=== PATIENT | female | born 1980 | race Asian ===

== ENCOUNTER 2016-09-29 00:40 | Inpatient (IN) | payer SELFPAY ==
[~2016-09-29] VITALS: Ht 160 cm; Wt 77.1 kg
[2016-09-29 01:30] VITALS: BP 120/59
[2016-09-29] MEDS ORDERED: LACTATED RINGERS 1,000 ML IV SCH (01:48)
[2016-09-29 02:26] LABS: BASOPHILS # (AUTO) 0.1 K/uL (0.00-0.22); EOSINOPHILS # (AUTO) 0.1 K/uL (0-0.4); EOSINOPHILS % (AUTO) 1.3 % (0.0-4.0); HEMOGLOBIN 13.1 g/dL (12.0-16.0); LYMPHOCYTES # (AUTO) 1.7 K/uL (2.5-16.5); LYMPHOCYTES % (AUTO) 18.2 % (20.5-51.1); MEAN CORPUSCULAR HEMOGLOBIN 31 pg (27-31); MEAN CORPUSCULAR HGB CONC 34 g/dL (33-37); MEAN CORPUSCULAR VOLUME 91 fL (80-94); MONOCYTES # (AUTO) 0.6 K/uL (0.8-1.0); MONOCYTES % (AUTO) 6.4 % (1.7-9.3); NEUTROPHILS # (AUTO) 6.9 K/uL (1.8-7.7); NEUTROPHILS % (AUTO) 73.1 % (42.2-75.2); PLATELET COUNT (AUTO) 135 K/uL (140-450); RED BLOOD CELL COUNT(AUTO) 4.29 MIL/uL (4.20-5.40); RED CELL DISTRIBUTION WIDTH 12.9 % (11.6-13.7); WHITE BLOOD COUNT (AUTO) 9.4 K/uL (4.8-10.8)
[2016-09-29] MEDS ORDERED: PREN-380 PO (02:44)
[2016-09-29 03:11] LABS: CALCIUM 8.8 mg/dL (8.5-10.1); CARBON DIOXIDE 22.8 mmol/L (21-32); CREATININE 0.6 mg/dL (0.6-1.3); POTASSIUM 3.8 mmol/L (3.5-5.1); TOTAL BILIRUBIN 0.4 mg/dL (0.0-1.0); TOTAL PROTEIN, SERUM 6.4 g/dL (6.4-8.2)
[2016-09-29 03:12] LABS: ALBUMIN 2.8 g/dL (3.4-5.0)
[2016-09-29 03:35] LABS: HIV RAPID SCREEN NON-REACTIVE (NON REACTIV)
[2016-09-29 04:22] LABS: APPEARANCE,URINE CLEAR (CLEAR); BILIRUBIN,URINE NEGATIVE (NEGATIVE); BLOOD, URINE NEGATIVE (NEGATIVE); COLOR,URINE YELLOW (YELLOW); LEUKOCYTE ESTERASE ,URINE 1+ (NEGATIVE); NITRITE, URINE NEGATIVE (NEGATIVE); PH,URINE 6.5 (5.0-9.0); PROTEIN,URINE NEGATIVE (NEGATIVE); UGLUCOSE NEGATIVE (NEGATIVE); UROBILINOGEN,URINE 0.2 EU/dL (0.2 - 1)
[2016-09-29 05:06] LABS: BACTERIA,URINE 3+ /HPF (None Seen); RBC,URINE 0-5 (RARE) /HPF (0-5); WBC,URINE 0-5 (RARE) /HPF (0-5)
[2016-09-29 05:07] LABS: TRICHOMONAS,URINE Few /HPF (None Seen)
[2016-09-29] MEDS ORDERED: ceFAZolin 1,000 MG VIAL ONE (05:40)
[2016-09-29] MEDS ORDERED: BETAMETH ACET/BETAMETH NA PH 30 MG/5 ML VIAL IM ONE ×2 (05:40→05:49)
[2016-09-29] MEDS ORDERED: ONDANSETRON 4 MG/2 ML VIAL ONE (05:50)
[2016-09-29] MEDS ORDERED: OXYTOCIN 10 UNITS/ML VIAL ONE ×2 (05:50→05:54)
[2016-09-29] MEDS ORDERED: BUPIVACAINE-MPF 0.75% 10 ML VIAL INJ ONE (05:50)
[2016-09-29] MEDS ORDERED: TRIAMCINOLONE 10 MG/ML 5ML VIAL ONE (05:54)
[2016-09-29] MEDS ORDERED: ceFAZolin 1,000 MG VIAL IVP ONE (06:00)
[2016-09-29] MEDS ORDERED: fentaNYL 0.05 MG/ML VIAL ONE (06:07)
[2016-09-29] MEDS ORDERED: MIDAZOLAM 2 MG/2 ML VIAL ONE (06:07)
[2016-09-29] MEDS ORDERED: KETAMINE 500 MG/5 ML VIAL ONE (06:07)
[2016-09-29] MEDS ORDERED: MORPHINE PRES FREE 10 MG/10 ML AMP IV ONE (06:08)
[2016-09-29] MEDS ORDERED: KETOROLAC 30 MG/ML VIAL IVP PRN (06:35)
[2016-09-29] MEDS ORDERED: diphenhydrAMINE 50 MG/ML VIAL IVP PRN (06:35)
[2016-09-29] MEDS ORDERED: ONDANSETRON 4 MG/2 ML VIAL IVP PRN (06:35)
[2016-09-29] MEDS ORDERED: OXYTOCIN 20 UNITS/LR PREMIX 1,000 ML IV ONE (07:37)
[2016-09-29] MEDS: OXYTOCIN 20 UNITS/LR PREMIX 1,000 ML IV SCH ×2 (07:54→15:54)
[2016-09-29] MEDS ORDERED: SIMETHICONE 80 MG TAB.CHEW PO PRN (07:55)
[2016-09-29] MEDS ORDERED: MEASLES, MUMPS, AND RUBELLA 1 VIAL SQVAC PRN (07:55)
[2016-09-29] MEDS ORDERED: oxyCODONE/APAP 5/325 MG 1 TAB TAB PO PRN (07:55)
[2016-09-29] MEDS ORDERED: TEMAZEPAM 15 MG CAP PO PRN (07:55)
[2016-09-29] MEDS ORDERED: SODIUM PHOSPHATE 118 ML ENEM RC SCH (09:00)
--- NOTE | 2016-09-29 09:03 | NUR ---
PATIENT HAS BEEN SCREENED AND CATEGORIZED LOW NUTRITION RISK. PATIENT WILL BE SEEN WITHIN 7 DAYS OF ADMISSION. 10/05/[address]
[2016-09-29 11:49] LABS: RAPID PLASMA REAGIN NON-REACTIVE (Non Reactiv)
[2016-09-29] MEDS: DOCUSATE SOD/SENNA 50/8.6 MG 1 TAB PO SCH (21:00)
[2016-09-30] MEDS: OXYTOCIN 20 UNITS/LR PREMIX 1,000 ML IV SCH (00:05)
[2016-09-30 06:32] LABS: BASOPHILS # (AUTO) 0.1 K/uL (0.00-0.22); BASOPHILS % (AUTO) 0.3 % (0.0-2.0); EOSINOPHILS # (AUTO) 0.2 K/uL (0-0.4); EOSINOPHILS % (AUTO) 0.8 % (0.0-4.0); HEMATOCRIT 37.6 % (36-48); HEMOGLOBIN 12.9 g/dL (12.0-16.0); LYMPHOCYTES % (AUTO) 4.7 % (20.5-51.1); MEAN CORPUSCULAR HEMOGLOBIN 31 pg (27-31); MEAN CORPUSCULAR HGB CONC 34 g/dL (33-37); MEAN CORPUSCULAR VOLUME 91 fL (80-94); MONOCYTES # (AUTO) 0.8 K/uL (0.8-1.0); MONOCYTES % (AUTO) 3.7 % (1.7-9.3); NEUTROPHILS # (AUTO) 18.3 K/uL (1.8-7.7); NEUTROPHILS % (AUTO) 90.5 % (42.2-75.2); PLATELET COUNT (AUTO) 145 K/uL (140-450); RED BLOOD CELL COUNT(AUTO) 4.12 MIL/uL (4.20-5.40); RED CELL DISTRIBUTION WIDTH 12.5 % (11.6-13.7)
[2016-09-30 07:46] LABS: WHITE BLOOD COUNT (AUTO) 20.4 K/uL (4.8-10.8)
[2016-09-30] MEDS: IBUPROFEN 800 MG TAB PO PRN ×3 (09:42→22:18)
[2016-09-30] MEDS: DOCUSATE SOD/SENNA 50/8.6 MG 1 TAB PO SCH (22:17)
[2016-10-01] MEDS: IBUPROFEN 800 MG TAB PO PRN (08:42)
[2016-10-01] MEDS ORDERED: IBUP-2213 PO (09:07)
[2016-10-01] MEDS: HYDROcodone/APAP 5/325 MG 1 TAB TAB PO PRN ×2 (16:47→21:13)
[2016-10-01] MEDS: DOCUSATE SOD/SENNA 50/8.6 MG 1 TAB PO SCH (21:08)
[2016-10-02] MEDS: HYDROcodone/APAP 5/325 MG 1 TAB TAB PO PRN (07:10)
== END 2016-10-02 11:35 | disposition home or self-care (01) | DRG 766 ==
LOC: MFCC 00:40
PROVIDERS: ADMIT Obstetrics & Gynecology; ATTEND Obstetrics & Gynecology
PROC: 10D00Z0 Extraction of Products of Conception, High, Open Approach (ICD-10-PCS; principal; 2016-09-29 06:00)
DX: O34.211 Maternal care for low transverse scar from previous cesarean delivery (principal); O32.8XX0 Maternal care for other malpresentation of fetus, not applicable or unspecified; O69.1XX0 Labor and delivery complicated by cord around neck, with compression, not applicable or unspecified; O09.529 Supervision of elderly multigravida, unspecified trimester; Z3A.39 39 weeks gestation of pregnancy; Z37.0 Single live birth; Z28.21 Immunization not carried out because of patient refusal
CPT/HCPCS: 36415; 80053; 81001; 85025; 86592; 86886; 86900; 86901; 87086; J0690; J0702; J2250; J2270; J2405; J2590; J3010; J3301; J3490; J7060; J7120